=== PATIENT | female | born 1935 | race African-American/Black ===

== ENCOUNTER 2021-08-13 10:03 | Inpatient (IN) | payer MEDICARE, MEDICAID ==
[~2021-08-13] VITALS: Ht 157.5 cm; Wt 79.2 kg
[2021-08-13 11:10] LABS: CHLORIDE 110 mEq/L (98-107)
[2021-08-13 11:15] LABS: BG BASE EXCESS -6.4 mmol/L (-2.0-2.0); BG CARBOXYHEMOGLOBIN 0.1 % (0.5-1.5); BG DEOXYHEMOGLOBIN 6.3 % (0.0-5.0); BG HCO3 ACT 16.8 mmol/L (22.0-26.0); BG METHEMOGLOBIN 0.3 % (0.0-1.5); BG OXYGEN SATURATION 93.7 % (92.0-98.5); BG OXYHEMOGLOBIN 93.3 % (94.0-97.0); BG PCO2 26.8 mmHg (35.0-45.0); BG PH 7.414 (7.350-7.450); BG PO2 72.5 mmHg (75.0-100.0); BG SAMPLE SITE RIGHT RADIAL; BG TOTAL HEMOGLOBIN 11.7 g/dL (12.0-18.0); BG VENT MODE NASAL CANNULA
[2021-08-13 11:24] LABS: BASOPHILS % 0.6 % (0.0-2.0); EOSINOPHILS % 0.1 % (0.0-5.0); HEMATOCRIT. 33.6 % (36.0-48.0); HEMOGLOBIN. 10.9 g/dL (12.0-16.0); LYMPHOCYTES % 12.7 % (20.0-50.0); MEAN CORPUSCULAR HEMOGLOBIN 28.9 pg (28.0-32.0); MEAN CORPUSCULAR VOLUME 88.9 fL (81.0-99.0); MONOCYTES % 7.5 % (2.0-8.0); NEUTROPHILS % 79.1 % (40.0-76.0); RED BLOOD CELL COUNT 3.78 mill/uL (4.2-5.4); RED CELL DISTRIBUTION WIDTH 13.8 % (11.6-14.6)
[2021-08-13] MEDS ORDERED: ENOXAPARIN 100MG/ML SYR SUBCUT ONE (12:00)
[2021-08-13 12:48] LABS: PLATELET 234 x1000/uL (130-400)
[2021-08-13] MEDS ORDERED: IOHEXOL-350 100 ML BOTTLE ONE (13:09)
[2021-08-13] MEDS ORDERED: DOCUSATE SODIUM 100MG CAPSULE PO PRN (15:00)
[2021-08-13] MEDS ORDERED: HEPARIN 25,000 UNITS PREMIX 250 ML IV SCH (15:00)
[2021-08-13] MEDS ORDERED: LORAZEPAM 2MG/ML CPJ IV PRN (15:00)
[2021-08-13] MEDS ORDERED: LABETALOL 5MG/ML SYR 20 MG/4 ML SYRINGE IV PRN (15:00)
[2021-08-13] MEDS ORDERED: ONDANSETRON HCL 4MG/2ML INJ IV PRN (15:00)
[2021-08-13] MEDS ORDERED: IPRATROPIUM/ALBUTEROL 0.5-3(2.5)MG/3ML NEB HHN PRN (15:00)
[2021-08-13] MEDS ORDERED: ACETAMINOPHEN 325MG TABLET PO PRN (15:00)
[2021-08-13] MEDS ORDERED: NALOXONE HCL 0.4MG/ML VIAL IV PRN (15:30)
[2021-08-13] MEDS ORDERED: METOPROLOL TARTRATE 50MG TABLET PO NR (15:45)
[2021-08-13 16:09] LABS: METHADONE URINE SCREEN NEGATIVE (NEGATIVE); OPIATES URINE SCREEN NEGATIVE (NEGATIVE)
[2021-08-13 16:10] LABS: *AMPHETAMINES SCREEN URINE NEGATIVE (NEGATIVE); *BARBITURATES SCREEN URINE NEGATIVE (NEGATIVE); *BENZODIAZEPINES SCREEN URINE NEGATIVE (NEGATIVE); *COCAINE SCREEN URINE NEGATIVE (NEGATIVE); CANNABINOID URINE SCREEN NEGATIVE (NEGATIVE); PHENCYCLIDINE URINE SCREEN NEGATIVE (NEGATIVE)
[2021-08-13 17:27] LABS: CREATINE KINASE MB FRACTION 69.2 ng/mL (0.5-3.6); INR 1.2
[2021-08-13 17:30] VITALS: BP 149/93
[2021-08-13 17:45] VITALS: BP 147/93
[2021-08-13 18:00] VITALS: BP 139/81
[2021-08-13] MEDS ORDERED: INFLUENZA VACCINE 05/PF 0.5 ML SYRINGE IM ONE (18:30)
[2021-08-13] MEDS ORDERED: PNEUMOCOCCAL 23-VAL P-SAC VAC 0.5 ML IM ONE (18:30)
[2021-08-14] VITALS (28 sets, daily range): BP systolic 97–152; BP diastolic 22–97
[2021-08-14] MEDS ORDERED: HEPARIN BOLUS PRN aPTT <30 IV
[2021-08-14] MEDS: HEPARIN 25,000 UNITS PREMIX 250 ML IV SCH (00:16)
[2021-08-14] MEDS ORDERED: AMIODARONE HCL 150 MG in DEXT 5% WATER 97 ML IV ONE (07:15)
[2021-08-14] MEDS: HEPARIN BOLUS PRN aPTT 30-44 IV ×2 (07:50→16:08)
[2021-08-14] MEDS ORDERED: AMIODARONE HCL 900 MG in DEXT 5% WATER 482 ML IV SCH (08:00)
[2021-08-14] MEDS ORDERED: FENTANYL CITRATE/PF 50MCG/ML 2ML VIAL ONE (10:33)
[2021-08-14] MEDS ORDERED: MIDAZOLAM HCL 2 MG/2 ML VIAL ONE (10:33)
[2021-08-14] MEDS ORDERED: LIDOCAINE HCL 1% 30ML VIAL (10MG/ML) ONE (10:33)
[2021-08-14] MEDS ORDERED: IODIXANOL 320MG/ML 100 ML BOTTLE IV ONE (10:33)
[2021-08-14] MEDS ORDERED: ONDANSETRON HCL 4MG/2ML INJ ONE ×2 (11:02→11:44)
[2021-08-14] MEDS ORDERED: ATROPINE SULFATE 1MG/10ML SYR IV PRN (12:00)
[2021-08-14] MEDS ORDERED: LIDOCAINE HCL 1% 20ML VIAL (Pyxis) INJ ONE (13:26)
[2021-08-14] MEDS ORDERED: HEPARIN SODIUM 1,000 UNIT/1ML VIAL IV ONE (14:56)
[2021-08-14 15:31] LABS: BASOPHILS % 0.4 % (0.0-2.0); HEMOGLOBIN. 10.8 g/dL (12.0-16.0); LYMPHOCYTES % 20.3 % (20.0-50.0); MEAN CORPUSCULAR HEMOGLOBIN 27.8 pg (28.0-32.0); MEAN CORPUSCULAR VOLUME 90.5 fL (81.0-99.0); MEAN PLATELET VOLUME 9.5 fl (7.4-10.4); MONOCYTES % 5.9 % (2.0-8.0); NEUTROPHILS % 73.4 % (40.0-76.0); PLATELET 279 x1000/uL (130-400); RED BLOOD CELL COUNT 3.87 mill/uL (4.2-5.4); RED CELL DISTRIBUTION WIDTH 13.8 % (11.6-14.6)
[2021-08-14 16:05] LABS: FERRITIN 1551 ng/mL (10-291)
[2021-08-14 16:14] LABS: VITAMIN B12 SERUM > 2000.0 pg/mL (211-911)
[2021-08-14] MEDS: CARVEDILOL 3.125 MG TABLET PO SCH (21:15)
[2021-08-14] MEDS: ATORVASTATIN CALCIUM 40MG TABLET PO SCH (21:15)
[2021-08-15] VITALS (82 sets, daily range): BP systolic 72–168; BP diastolic 19–81
[2021-08-15] MEDS: HEPARIN 25,000 UNITS PREMIX 250 ML IV SCH (01:55)
[2021-08-15] MEDS: HYDROCODONE/ACETAMINOPHEN 5/325MG TABLET PO PRN (05:00)
[2021-08-15 05:26] LABS: BASOPHILS % 0.5 % (0.0-2.0); EOSINOPHILS % 0.2 % (0.0-5.0); HEMATOCRIT. 29.1 % (36.0-48.0); HEMOGLOBIN. 9.1 g/dL (12.0-16.0); LYMPHOCYTES % 20.6 % (20.0-50.0); MEAN CORPUSCULAR HEMOGLOBIN 27.8 pg (28.0-32.0); MEAN CORPUSCULAR VOLUME 88.6 fL (81.0-99.0); MEAN PLATELET VOLUME 9.3 fl (7.4-10.4); MONOCYTES % 7.1 % (2.0-8.0); NEUTROPHILS % 71.6 % (40.0-76.0); PLATELET 179 x1000/uL (130-400); RED BLOOD CELL COUNT 3.29 mill/uL (4.2-5.4); RED CELL DISTRIBUTION WIDTH 13.9 % (11.6-14.6)
[2021-08-15 05:42] LABS: PHOSPHORUS 3.9 mg/dL (2.5-4.9)
[2021-08-15] MEDS ORDERED: MAGNESIUM 1 G PREMIX 100 ML IV SCH (08:00)
[2021-08-15] MEDS: ASPIRIN 81MG TABLET PO SCH (08:06)
[2021-08-15] MEDS: CARVEDILOL 3.125 MG TABLET PO SCH ×2 (08:06→20:44)
[2021-08-15] MEDS ORDERED: DEXTROSE 50% WATER 50ML SYRINGE IV PRN (08:45)
[2021-08-15] MEDS: FUROSEMIDE 100MG/10ML VIAL IVP SCH (10:51)
[2021-08-15] MEDS: BLOOD SUGAR DIAGNOSTIC STRIP TEST SCH ×3 (12:11→20:44)
[2021-08-15] MEDS: INSULIN LISPRO 100 UNITS/ML SUBCUT SCH ×3 (12:37→20:45)
[2021-08-15] MEDS ORDERED: AMIODARONE HCL 900 MG in DEXT 5% WATER 482 ML IV PRN (13:15)
[2021-08-15] MEDS: ATORVASTATIN CALCIUM 40MG TABLET PO SCH (20:44)
[2021-08-16] VITALS (62 sets, daily range): BP systolic 89–158; BP diastolic 26–100
[2021-08-16 03:19] LABS: BASOPHILS % 0.6 % (0.0-2.0); EOSINOPHILS % 0.9 % (0.0-5.0); HEMATOCRIT. 29.2 % (36.0-48.0); HEMOGLOBIN. 9.2 g/dL (12.0-16.0); LYMPHOCYTES % 15.6 % (20.0-50.0); MEAN CORPUSCULAR HEMOGLOBIN 27.6 pg (28.0-32.0); MEAN CORPUSCULAR VOLUME 87.4 fL (81.0-99.0); MEAN PLATELET VOLUME 9.4 fl (7.4-10.4); MONOCYTES % 6.2 % (2.0-8.0); NEUTROPHILS % 76.7 % (40.0-76.0); PLATELET 130 x1000/uL (130-400); RED BLOOD CELL COUNT 3.34 mill/uL (4.2-5.4); RED CELL DISTRIBUTION WIDTH 14.1 % (11.6-14.6)
[2021-08-16 03:27] LABS: CHLORIDE 108 mEq/L (98-107)
[2021-08-16 03:33] LABS: PHOSPHORUS 3.9 mg/dL (2.5-4.9)
[2021-08-16] MEDS: HYDROCODONE/ACETAMINOPHEN 5/325MG TABLET PO PRN ×2 (04:58→17:52)
[2021-08-16] MEDS: HEPARIN 25,000 UNITS PREMIX 250 ML IV SCH (05:57)
[2021-08-16] MEDS ORDERED: MAGNESIUM 1 G PREMIX 100 ML IV NR (07:00)
[2021-08-16] MEDS: BLOOD SUGAR DIAGNOSTIC STRIP TEST SCH ×4 (07:44→21:23)
[2021-08-16] MEDS: INSULIN LISPRO 100 UNITS/ML SUBCUT SCH ×4 (07:45→21:00)
[2021-08-16 08:26] LABS: BG BASE EXCESS -4.2 mmol/L (-2.0-2.0); BG CARBOXYHEMOGLOBIN 0.4 % (0.5-1.5); BG DEOXYHEMOGLOBIN 1.1 % (0.0-5.0); BG FRACTION INSPIRED OXYGEN 32; BG HCO3 ACT 20.5 mmol/L (22.0-26.0); BG METHEMOGLOBIN 0.4 % (0.0-1.5); BG OXYGEN SATURATION 98.9 % (92.0-98.5); BG OXYHEMOGLOBIN 98.1 % (94.0-97.0); BG PH 7.373 (7.350-7.450); BG SAMPLE SITE RIGHT BRACHIAL; BG TOTAL HEMOGLOBIN 9.4 g/dL (12.0-18.0); BG VENT MODE NASAL CANNULA
[2021-08-16] MEDS: FUROSEMIDE 100MG/10ML VIAL IVP SCH (08:42)
[2021-08-16] MEDS: ASPIRIN 81MG TABLET PO SCH (08:42)
[2021-08-16] MEDS: CARVEDILOL 3.125 MG TABLET PO SCH ×2 (08:42→21:06)
[2021-08-16] MEDS: AMIODARONE HCL 200 MG TABLET PO SCH ×2 (14:54→21:05)
[2021-08-16] MEDS: ATORVASTATIN CALCIUM 40MG TABLET PO SCH (21:06)
[2021-08-17] VITALS (69 sets, daily range): BP systolic 82–167; BP diastolic 32–113
[2021-08-17 02:21] LABS: BASOPHILS % 0.7 % (0.0-2.0); EOSINOPHILS % 1.8 % (0.0-5.0); HEMATOCRIT. 27.2 % (36.0-48.0); HEMOGLOBIN. 8.7 g/dL (12.0-16.0); LYMPHOCYTES % 16.9 % (20.0-50.0); MEAN CORPUSCULAR HEMOGLOBIN 28.1 pg (28.0-32.0); MEAN CORPUSCULAR VOLUME 87.9 fL (81.0-99.0); MEAN PLATELET VOLUME 9.8 fl (7.4-10.4); NEUTROPHILS % 72.6 % (40.0-76.0); PLATELET 91 x1000/uL (130-400); RED BLOOD CELL COUNT 3.09 mill/uL (4.2-5.4); RED CELL DISTRIBUTION WIDTH 13.7 % (11.6-14.6)
[2021-08-17 02:41] LABS: PHOSPHORUS 4.4 mg/dL (2.5-4.9)
[2021-08-17] MEDS: HYDROCODONE/ACETAMINOPHEN 5/325MG TABLET PO PRN (03:55)
[2021-08-17] MEDS: ACETAMINOPHEN 325MG TABLET PO PRN (06:40)
[2021-08-17] MEDS: HEPARIN 25,000 UNITS PREMIX 250 ML IV SCH (06:43)
[2021-08-17] MEDS: BLOOD SUGAR DIAGNOSTIC STRIP TEST SCH ×4 (07:23→21:00)
[2021-08-17] MEDS: INSULIN LISPRO 100 UNITS/ML SUBCUT SCH ×4 (07:24→21:00)
[2021-08-17] MEDS: CARVEDILOL 3.125 MG TABLET PO SCH ×2 (08:08→23:48)
[2021-08-17] MEDS: AMIODARONE HCL 200 MG TABLET PO SCH (08:54)
[2021-08-17] MEDS: FUROSEMIDE 100MG/10ML VIAL IVP SCH (08:54)
[2021-08-17] MEDS: ASPIRIN 81MG TABLET PO SCH (08:54)
[2021-08-17] MEDS ORDERED: KCL 20MEQ/100ML PREMIX 100 ML IV NR (10:00)
[2021-08-17] MEDS: HYDRALAZINE HCL 25MG TABLET PO SCH (22:00)
[2021-08-17] MEDS: ATORVASTATIN CALCIUM 40MG TABLET PO SCH (23:48)
[2021-08-18] VITALS (29 sets, daily range): BP systolic 96–133; BP diastolic 45–69
[2021-08-18] MEDS: HYDROCODONE/ACETAMINOPHEN 5/325MG TABLET PO PRN (04:06)
[2021-08-18 06:14] LABS: BASOPHILS % 0.4 % (0.0-2.0); EOSINOPHILS % 1.5 % (0.0-5.0); HEMATOCRIT. 27.4 % (36.0-48.0); HEMOGLOBIN. 8.9 g/dL (12.0-16.0); LYMPHOCYTES % 15.8 % (20.0-50.0); MEAN CORPUSCULAR HEMOGLOBIN 28.6 pg (28.0-32.0); MEAN CORPUSCULAR VOLUME 88.1 fL (81.0-99.0); MEAN PLATELET VOLUME 9.9 fl (7.4-10.4); MONOCYTES % 9.9 % (2.0-8.0); NEUTROPHILS % 72.4 % (40.0-76.0); PHOSPHORUS 4.2 mg/dL (2.5-4.9); PLATELET 100 x1000/uL (130-400); RED BLOOD CELL COUNT 3.11 mill/uL (4.2-5.4); RED CELL DISTRIBUTION WIDTH 13.7 % (11.6-14.6)
[2021-08-18] MEDS: HYDRALAZINE HCL 25MG TABLET PO SCH ×3 (07:49→22:00)
[2021-08-18] MEDS: INSULIN LISPRO 100 UNITS/ML SUBCUT SCH ×5 (07:49→22:09)
[2021-08-18] MEDS: BLOOD SUGAR DIAGNOSTIC STRIP TEST SCH ×4 (07:49→20:59)
[2021-08-18] MEDS: ASPIRIN 81MG TABLET PO SCH (10:03)
[2021-08-18] MEDS: CLOPIDOGREL 75MG TABLET PO SCH (10:03)
[2021-08-18] MEDS: CARVEDILOL 3.125 MG TABLET PO SCH ×2 (10:04→20:59)
[2021-08-18] MEDS: FUROSEMIDE 40MG TABLET PO SCH (10:04)
[2021-08-18] MEDS: ISOSORBIDE MONONITRATE 60MG TABLET SR 24HR PO SCH (10:04)
[2021-08-18] MEDS: IRON SUCROSE COMPLEX 100 MG/5 ML ML IV SCH (18:40)
[2021-08-18] MEDS: ATORVASTATIN CALCIUM 40MG TABLET PO SCH (20:59)
[2021-08-19] VITALS (20 sets, daily range): BP systolic 100–146; BP diastolic 45–82
[2021-08-19] MEDS: ACETAMINOPHEN 325MG TABLET PO PRN ×2 (03:24→21:58)
[2021-08-19] MEDS: HYDRALAZINE HCL 25MG TABLET PO SCH ×3 (06:00→21:37)
[2021-08-19 06:08] LABS: BASOPHILS % 0.3 % (0.0-2.0); EOSINOPHILS % 2.2 % (0.0-5.0); HEMATOCRIT. 25.5 % (36.0-48.0); HEMOGLOBIN. 8.3 g/dL (12.0-16.0); LYMPHOCYTES % 17.9 % (20.0-50.0); MEAN CORPUSCULAR HEMOGLOBIN 28.6 pg (28.0-32.0); MEAN CORPUSCULAR VOLUME 88.3 fL (81.0-99.0); MEAN PLATELET VOLUME 9.7 fl (7.4-10.4); MONOCYTES % 14.1 % (2.0-8.0); NEUTROPHILS % 65.5 % (40.0-76.0); PLATELET 108 x1000/uL (130-400); RED BLOOD CELL COUNT 2.89 mill/uL (4.2-5.4); RED CELL DISTRIBUTION WIDTH 13.5 % (11.6-14.6)
[2021-08-19] MEDS: BLOOD SUGAR DIAGNOSTIC STRIP TEST SCH ×4 (07:50→21:37)
[2021-08-19] MEDS: INSULIN LISPRO 100 UNITS/ML SUBCUT SCH ×4 (08:20→21:38)
[2021-08-19] MEDS: CARVEDILOL 3.125 MG TABLET PO SCH ×2 (09:00→21:37)
[2021-08-19] MEDS: ISOSORBIDE MONONITRATE 60MG TABLET SR 24HR PO SCH (09:00)
[2021-08-19] MEDS: CLOPIDOGREL 75MG TABLET PO SCH (09:19)
[2021-08-19] MEDS: FUROSEMIDE 40MG TABLET PO SCH (09:19)
[2021-08-19] MEDS: ASPIRIN 81MG TABLET PO SCH (09:19)
[2021-08-19] MEDS: IRON SUCROSE COMPLEX 100 MG/5 ML ML IV SCH (16:25)
[2021-08-19] MEDS: ATORVASTATIN CALCIUM 40MG TABLET PO SCH (21:36)
[2021-08-20] VITALS (14 sets, daily range): BP systolic 106–146; BP diastolic 53–85
[2021-08-20] MEDS: HYDRALAZINE HCL 25MG TABLET PO SCH ×3 (06:21→22:00)
[2021-08-20] MEDS: BLOOD SUGAR DIAGNOSTIC STRIP TEST SCH ×4 (06:27→21:00)
[2021-08-20] MEDS: INSULIN LISPRO 100 UNITS/ML SUBCUT SCH ×4 (06:28→21:00)
[2021-08-20 07:19] LABS: BASOPHILS % 0.5 % (0.0-2.0); EOSINOPHILS % 2.9 % (0.0-5.0); HEMATOCRIT. 30.6 % (36.0-48.0); HEMOGLOBIN. 9.8 g/dL (12.0-16.0); LYMPHOCYTES % 19.8 % (20.0-50.0); MEAN CORPUSCULAR HEMOGLOBIN 28.1 pg (28.0-32.0); MEAN CORPUSCULAR VOLUME 88.2 fL (81.0-99.0); MEAN PLATELET VOLUME 9.4 fl (7.4-10.4); MONOCYTES % 13.8 % (2.0-8.0); PLATELET 173 x1000/uL (130-400); RED BLOOD CELL COUNT 3.47 mill/uL (4.2-5.4); RED CELL DISTRIBUTION WIDTH 14.3 % (11.6-14.6)
[2021-08-20 07:52] LABS: PHOSPHORUS 3.1 mg/dL (2.5-4.9)
[2021-08-20] MEDS: ASPIRIN 81MG TABLET PO SCH (08:36)
[2021-08-20] MEDS: CLOPIDOGREL 75MG TABLET PO SCH (08:37)
[2021-08-20] MEDS: ACETAMINOPHEN 325MG TABLET PO PRN (08:38)
[2021-08-20] MEDS: CARVEDILOL 3.125 MG TABLET PO SCH ×3 (08:38→23:09)
[2021-08-20] MEDS: FUROSEMIDE 40MG TABLET PO SCH (08:39)
[2021-08-20] MEDS: ISOSORBIDE MONONITRATE 60MG TABLET SR 24HR PO SCH (08:39)
[2021-08-20] MEDS: IRON SUCROSE COMPLEX 100 MG/5 ML ML IV SCH (15:17)
[2021-08-20] MEDS: ATORVASTATIN CALCIUM 40MG TABLET PO SCH (21:13)
[2021-08-20] MEDS ORDERED: AMIODARONE HCL 900 MG in DEXT 5% WATER 482 ML IV SCH (22:00)
[2021-08-21] VITALS (14 sets, daily range): BP systolic 117–152; BP diastolic 53–78
[2021-08-21 00:57] LABS: T4 FREE 1.33 ng/dL (0.76-1.46)
[2021-08-21 01:40] LABS: FOLIC ACID (FOLATE) SERUM 5.3 ng/mL (>5.38)
[2021-08-21] MEDS: BLOOD SUGAR DIAGNOSTIC STRIP TEST SCH ×4 (06:40→21:09)
[2021-08-21] MEDS: HYDRALAZINE HCL 25MG TABLET PO SCH ×3 (06:40→21:09)
[2021-08-21] MEDS: INSULIN LISPRO 100 UNITS/ML SUBCUT SCH ×4 (07:20→21:00)
[2021-08-21 08:31] LABS: HEMOGLOBIN. 9.7 g/dL (12.0-16.0); MEAN CORPUSCULAR HEMOGLOBIN 28.4 pg (28.0-32.0); MEAN PLATELET VOLUME 9.2 fl (7.4-10.4); PLATELET 216 x1000/uL (130-400); RED BLOOD CELL COUNT 3.41 mill/uL (4.2-5.4); RED CELL DISTRIBUTION WIDTH 14.4 % (11.6-14.6)
[2021-08-21] MEDS: FUROSEMIDE 40MG TABLET PO SCH (08:43)
[2021-08-21] MEDS: ISOSORBIDE MONONITRATE 60MG TABLET SR 24HR PO SCH (08:43)
[2021-08-21] MEDS: CARVEDILOL 3.125 MG TABLET PO SCH ×2 (08:43→21:09)
[2021-08-21] MEDS: ASPIRIN 81MG TABLET PO SCH (08:43)
[2021-08-21] MEDS: CLOPIDOGREL 75MG TABLET PO SCH (08:43)
[2021-08-21 09:03] LABS: PHOSPHORUS 2.5 mg/dL (2.5-4.9)
[2021-08-21 13:08] LABS: PLATELET ESTIMATE NORMAL
[2021-08-21] MEDS: ATORVASTATIN CALCIUM 40MG TABLET PO SCH (21:09)
[2021-08-22] VITALS (11 sets, daily range): BP systolic 97–140; BP diastolic 53–71
[2021-08-22] MEDS: BLOOD SUGAR DIAGNOSTIC STRIP TEST SCH ×4 (06:43→21:00)
[2021-08-22] MEDS: HYDRALAZINE HCL 25MG TABLET PO SCH ×3 (06:46→22:00)
[2021-08-22 06:59] LABS: BASOPHILS % 0.9 % (0.0-2.0); EOSINOPHILS % 2.8 % (0.0-5.0); HEMATOCRIT. 30.8 % (36.0-48.0); HEMOGLOBIN. 9.9 g/dL (12.0-16.0); MEAN CORPUSCULAR HEMOGLOBIN 28.5 pg (28.0-32.0); MEAN CORPUSCULAR VOLUME 88.2 fL (81.0-99.0); MEAN PLATELET VOLUME 8.7 fl (7.4-10.4); MONOCYTES % 14.2 % (2.0-8.0); NEUTROPHILS % 57.1 % (40.0-76.0); PLATELET 268 x1000/uL (130-400); RED BLOOD CELL COUNT 3.49 mill/uL (4.2-5.4); RED CELL DISTRIBUTION WIDTH 14.4 % (11.6-14.6)
[2021-08-22 07:08] LABS: PHOSPHORUS 2.6 mg/dL (2.5-4.9)
[2021-08-22] MEDS: INSULIN LISPRO 100 UNITS/ML SUBCUT SCH ×4 (07:20→21:00)
[2021-08-22] MEDS: FUROSEMIDE 40MG TABLET PO SCH (09:26)
[2021-08-22] MEDS: ISOSORBIDE MONONITRATE 60MG TABLET SR 24HR PO SCH (09:26)
[2021-08-22] MEDS: CARVEDILOL 3.125 MG TABLET PO SCH ×2 (09:26→21:00)
[2021-08-22] MEDS: CLOPIDOGREL 75MG TABLET PO SCH (09:26)
[2021-08-22] MEDS: ASPIRIN 81MG TABLET PO SCH (09:26)
[2021-08-22] MEDS: LACTULOSE 20G/30ML UDC PO SCH ×2 (14:00→22:00)
[2021-08-22] MEDS: ATORVASTATIN CALCIUM 40MG TABLET PO SCH (21:00)
[2021-08-23] VITALS (12 sets, daily range): BP systolic 111–138; BP diastolic 42–77
[2021-08-23] MEDS: LACTULOSE 20G/30ML UDC PO SCH ×3 (06:00→21:22)
[2021-08-23] MEDS: HYDRALAZINE HCL 25MG TABLET PO SCH ×3 (06:00→21:30)
[2021-08-23] MEDS: BLOOD SUGAR DIAGNOSTIC STRIP TEST SCH ×4 (07:00→21:30)
[2021-08-23 07:05] LABS: HEMATOCRIT. 31.4 % (36.0-48.0); HEMOGLOBIN. 10.1 g/dL (12.0-16.0); MEAN CORPUSCULAR HEMOGLOBIN 28.7 pg (28.0-32.0); MEAN CORPUSCULAR VOLUME 89.9 fL (81.0-99.0); MEAN PLATELET VOLUME 8.3 fl (7.4-10.4); PLATELET 302 x1000/uL (130-400); RED CELL DISTRIBUTION WIDTH 14.8 % (11.6-14.6)
[2021-08-23] MEDS: INSULIN LISPRO 100 UNITS/ML SUBCUT SCH ×4 (07:06→21:31)
[2021-08-23 08:07] LABS: PHOSPHORUS 3.3 mg/dL (2.5-4.9)
[2021-08-23] MEDS: CLOPIDOGREL 75MG TABLET PO SCH (09:45)
[2021-08-23] MEDS: APIXABAN 2.5 MG TABLET PO SCH ×2 (09:45→17:41)
[2021-08-23] MEDS: CARVEDILOL 6.25 MG TABLET PO SCH ×2 (09:45→21:29)
[2021-08-23] MEDS: ISOSORBIDE MONONITRATE 60MG TABLET SR 24HR PO SCH (09:46)
[2021-08-23] MEDS: FUROSEMIDE 40MG TABLET PO SCH (09:46)
[2021-08-23] MEDS ORDERED: POTASSIUM CHLORIDE 20MEQ TABLET SR PO NR (15:00)
[2021-08-23] MEDS ORDERED: MAGNESIUM 2 G PREMIX 50 ML IV SCH (16:00)
[2021-08-23] MEDS ORDERED: APIX2.5T PO (17:17)
[2021-08-23] MEDS ORDERED: POTA20TA82 PO (17:17)
[2021-08-23] MEDS ORDERED: CLOP75TA15 PO (17:17)
[2021-08-23] MEDS ORDERED: COR6 PO (17:17)
[2021-08-23] MEDS ORDERED: LIP40 PO (17:17)
[2021-08-23] MEDS ORDERED: FURO40TA5 PO (17:17)
[2021-08-23] MEDS ORDERED: LACT10SO7 PO (17:17)
[2021-08-23] MEDS ORDERED: HYDR-4134 PO (17:17)
[2021-08-23] MEDS ORDERED: ISOS60TA76 PO (17:17)
[2021-08-23] MEDS: ATORVASTATIN CALCIUM 40MG TABLET PO SCH (21:22)
[2021-08-23] MEDS: ACETAMINOPHEN 325MG TABLET PO PRN (21:38)
[2021-08-23 23:19] LABS: PLATELET ESTIMATE NORMAL
[2021-08-24] VITALS (12 sets, daily range): BP systolic 99–131; BP diastolic 42–69
[2021-08-24] MEDS: HYDRALAZINE HCL 25MG TABLET PO SCH ×3 (06:26→21:23)
[2021-08-24] MEDS: BLOOD SUGAR DIAGNOSTIC STRIP TEST SCH ×4 (06:26→21:23)
[2021-08-24] MEDS: LACTULOSE 20G/30ML UDC PO SCH ×3 (06:26→21:22)
[2021-08-24 07:18] LABS: EOSINOPHILS % 4.4 % (0.0-5.0); HEMATOCRIT. 30.8 % (36.0-48.0); HEMOGLOBIN. 9.6 g/dL (12.0-16.0); LYMPHOCYTES % 33.4 % (20.0-50.0); MEAN CORPUSCULAR HEMOGLOBIN 28.3 pg (28.0-32.0); MEAN CORPUSCULAR VOLUME 90.5 fL (81.0-99.0); MEAN PLATELET VOLUME 8.3 fl (7.4-10.4); MONOCYTES % 14.5 % (2.0-8.0); NEUTROPHILS % 46.7 % (40.0-76.0); PLATELET 318 x1000/uL (130-400); RED CELL DISTRIBUTION WIDTH 15.4 % (11.6-14.6)
[2021-08-24] MEDS: INSULIN LISPRO 100 UNITS/ML SUBCUT SCH ×4 (07:20→21:00)
[2021-08-24 07:26] LABS: PHOSPHORUS 3.9 mg/dL (2.5-4.9)
[2021-08-24] MEDS: FUROSEMIDE 40MG TABLET PO SCH (09:20)
[2021-08-24] MEDS: ISOSORBIDE MONONITRATE 60MG TABLET SR 24HR PO SCH (09:20)
[2021-08-24] MEDS: APIXABAN 2.5 MG TABLET PO SCH ×2 (09:20→17:36)
[2021-08-24] MEDS: CLOPIDOGREL 75MG TABLET PO SCH (09:20)
[2021-08-24] MEDS: CARVEDILOL 6.25 MG TABLET PO SCH ×2 (09:20→21:00)
[2021-08-24] MEDS ORDERED: BENZONATATE 100MG CAPSULE PO PRN (19:30)
[2021-08-24] MEDS: ATORVASTATIN CALCIUM 40MG TABLET PO SCH (21:22)
[2021-08-24] MEDS: FLUTICASONE PROPIONATE 50MCG/SPRAY BOTTLE BOTHNSTRLS SCH (21:22)
[2021-08-25] VITALS (13 sets, daily range): BP systolic 98–156; BP diastolic 48–78
[2021-08-25] MEDS: HYDRALAZINE HCL 25MG TABLET PO SCH ×4 (05:52→22:23)
[2021-08-25] MEDS: LACTULOSE 20G/30ML UDC PO SCH (05:52)
[2021-08-25] MEDS: BLOOD SUGAR DIAGNOSTIC STRIP TEST SCH ×4 (05:53→21:00)
[2021-08-25] MEDS: INSULIN LISPRO 100 UNITS/ML SUBCUT SCH ×4 (06:21→21:00)
[2021-08-25 07:09] LABS: EOSINOPHILS % 3.8 % (0.0-5.0); HEMATOCRIT. 31.1 % (36.0-48.0); HEMOGLOBIN. 9.8 g/dL (12.0-16.0); LYMPHOCYTES % 33.5 % (20.0-50.0); MEAN CORPUSCULAR HEMOGLOBIN 28.2 pg (28.0-32.0); MEAN CORPUSCULAR VOLUME 89.9 fL (81.0-99.0); MEAN PLATELET VOLUME 8.2 fl (7.4-10.4); MONOCYTES % 13.7 % (2.0-8.0); PLATELET 339 x1000/uL (130-400); RED BLOOD CELL COUNT 3.46 mill/uL (4.2-5.4); RED CELL DISTRIBUTION WIDTH 15.6 % (11.6-14.6)
[2021-08-25] MEDS ORDERED: FUROSEMIDE 40MG TABLET PO SCH (09:00)
[2021-08-25] MEDS ORDERED: MAGNESIUM CITRATE 300ML SOLUTION PO NR (09:00)
[2021-08-25] MEDS: FLUTICASONE PROPIONATE 50MCG/SPRAY BOTTLE BOTHNSTRLS SCH (09:22)
[2021-08-25] MEDS: ISOSORBIDE MONONITRATE 60MG TABLET SR 24HR PO SCH (09:25)
[2021-08-25] MEDS: APIXABAN 2.5 MG TABLET PO SCH ×2 (09:25→17:27)
[2021-08-25] MEDS: CLOPIDOGREL 75MG TABLET PO SCH (09:25)
[2021-08-25] MEDS: CARVEDILOL 6.25 MG TABLET PO SCH ×2 (12:45→22:23)
[2021-08-25] MEDS: ATORVASTATIN CALCIUM 40MG TABLET PO SCH (22:22)
[2021-08-26] MEDS ORDERED: LACTULOSE 20G/30ML UDC PO SCH (09:00)
[2021-08-26] MEDS ORDERED: ALLO100T PO (18:23)
== END 2021-08-25 22:50 | DRG 190 ==
LOC: ER 10:03 → 3WST 12:20 → ENRESERV 16:18 → CVICU 08-14 11:28 → 3WST 08-19 18:20
PROVIDERS: ADMIT Internal Medicine; ATTEND Internal Medicine
PROC: 5A02210 Assistance with Cardiac Output using Balloon Pump, Continuous (ICD-10-PCS; principal; 2021-08-14)
PROC: 4A023N7 Measurement of Cardiac Sampling and Pressure, Left Heart, Percutaneous Approach (ICD-10-PCS; 2021-08-14)
PROC: 02HV33Z Insertion of Infusion Device into Superior Vena Cava, Percutaneous Approach (ICD-10-PCS; 2021-08-14)
PROC: B548ZZA Ultrasonography of Superior Vena Cava, Guidance (ICD-10-PCS; 2021-08-14)
PROC: B2111ZZ Fluoroscopy of Multiple Coronary Arteries using Low Osmolar Contrast (ICD-10-PCS; 2021-08-14)
PROC: 4A10X4Z Monitoring of Central Nervous Electrical Activity, External Approach (ICD-10-PCS; 2021-08-21)
DX: I21.4 Non-ST elevation (NSTEMI) myocardial infarction (principal); J96.01 Acute respiratory failure with hypoxia; N17.0 Acute kidney failure with tubular necrosis; R57.0 Cardiogenic shock; G82.50 Quadriplegia, unspecified; E87.4 Mixed disorder of acid-base balance; D69.6 Thrombocytopenia, unspecified; I13.0 Hypertensive heart and chronic kidney disease with heart failure and stage 1 through stage 4 chronic kidney disease, or unspecified chronic kidney disease; I50.43 Acute on chronic combined systolic (congestive) and diastolic (congestive) heart failure; D64.9 Anemia, unspecified; I25.10 Atherosclerotic heart disease of native coronary artery without angina pectoris; Z95.5 Presence of coronary angioplasty implant and graft; E78.5 Hyperlipidemia, unspecified; Z88.8 Allergy status to other drugs, medicaments and biological substances; D72.829 Elevated white blood cell count, unspecified; E11.22 Type 2 diabetes mellitus with diabetic chronic kidney disease; E78.00 Pure hypercholesterolemia, unspecified; G89.29 Other chronic pain; G92.8 Other toxic encephalopathy; I25.5 Ischemic cardiomyopathy; I48.0 Paroxysmal atrial fibrillation; M62.82 Rhabdomyolysis; I48.91 Unspecified atrial fibrillation; Z20.822 Contact with and (suspected) exposure to COVID-19; N18.30 Chronic kidney disease, stage 3 unspecified; Z79.84 Long term (current) use of oral hypoglycemic drugs; Z82.49 Family history of ischemic heart disease and other diseases of the circulatory system; Z83.3 Family history of diabetes mellitus; Z86.73 Personal history of transient ischemic attack (TIA), and cerebral infarction without residual deficits; Z95.1 Presence of aortocoronary bypass graft; R53.81 Other malaise
CPT/HCPCS: 33967; 36415; 36600; 71045; 71275; 72040; 74018; 76770; 76937; 80048; 80053; 80061; 80305; 82140; 82375; 82550; 82553; 82607; 82728; 82746; 82805; 82962; 83036; 83540; 83550; 83735; 83880; 84100; 84439; 84443; 84481; 84484; 85025; 87426; 93005; 93306; 93458; 97162; 97166; 97530; 97535; 99291; A6261; C1725; C1769; C1887; C1893; J0282; J1644; J1650; J1815; J1940; J2250; J2405; J3010; J3475; J3480; J3490; J7040; J7060; L1830; Q9967